=== PATIENT | female | born 1975 | race Caucasian/White ===

== ENCOUNTER 2016-08-29 15:31 | Emergency (ER) | payer OTHER ==
[~2016-08-29] VITALS: Ht 162.6 cm; Wt 115.2 kg
[~2016-08-29 15:31] MED LIST: ASCO-262 PO; CYAN10006 PO; HYDR-3812 PO; LEVO500T2 PO; MULT-974 PO; ONDA4TAB11 PO; ONDN4T PO
[2016-08-29] MEDS ORDERED: NS IV 1000 ML 1,000 ML IV ONE (15:34)
--- OUTSIDE RECORDS SUMMARY | 2016-08-29 15:36 | XMS REPORT | Continuity of Care Document ---
Author Author [facility] Organization [facility] Address Unknown Phone Unavailable Care Team Providers Care Parts Order And Stock Clerk Name Role Phone YUMIKO VOSS MD PCP Insurance Providers Payer Name Policy Number Subscriber Name Relationship [facility] [id number] Jan Anand W 01 Advance Directives Directive Response Recorded Date/Time Advance Directives No 09/14/15 10:00pm Organ Donor Yes 09/14/15 10:00pm Chief Complaint and Reason for Visit Chief Complaint Lower Extremity Reason for Visit Osteoarthritis of knee Problems Active Problems Medical Problem Onset Date Status Diarrhea Unknown Acute Diarrhea Unknown Acute Nausea and vomiting Unknown Acute Osteoarthritis of knee Unknown Acute Medications Current Home Medications Medication Dose Units Route Directions Days/Qty Instructions Start Date Multivitamin 1 Each 1 Tab Oral Daily 01/04/15 Ascorbate Calcium 500 Mg 500 Mg Oral Daily 09/15/15 Cyanocobalamin (Vitamin B-12) 1,000 Mcg 1,000 Mcg Oral Daily Past Home Medications Medication Directions Ordered Status Ondansetron 4 Mg Tab.rapdis, 4 Mg Oral Every 6 Hours as needed for Nausea/ Vomiting 01/05/15 Discontinued Hydrocodone/Acetaminophen 1 Each Tablet, 1 Tab Oral Every 4HRS as needed for Headache, Pain 09/17/15 Discontinued Social History Social History Problem Response Recorded Date/Time Alcohol Use Rarely Uses 09/14/2015 10:00pm Recreational Drug Use No 09/14/2015 10:00pm Recent Foreign Travel No 03/19/2016 6:08pm Recent Infectious Disease Exposure No 03/19/2016 6:08pm Sexually Transmitted Disease No 03/19/2016 6:11pm HIV/AIDS No 03/19/2016 6:11pm Recent Hopitalizations No 03/19/2016 6:11pm Sexually Transmitted Disease No 03/19/2016 6:11pm Hospital Discharge Instructions No hospital discharge instructions. Plan of Care Discharge Date 03/19/16 7:40pm Disposition 01 HOME, SELF-CARE Condition at Discharge Improved Instructions/Education Provided NO INSTRUCTIONS GIVEN Prescriptions See Medication Section Referrals YUMIKO VOSS MD - Primary Care Physician Additional Instructions/Education 1. Use anti-inflammatories like Naprosyn ( Aleve) or ibuprofen (Motrin) for pain relief 2. Use an ice pack to the knee at 20 minute intervals every 1-2 hours 3. If pain persists into next week follow-up with your primary care provider to discuss an MRI of the knee which we'll give a much more detailed view of the meniscus and ligamentous and can guide further treatments All discharge instructions reviewed with patient and/or family. Voiced understanding. Functional Status No functional status results. Allergies, Adverse Reactions, Alerts Allergen Type Severity Reaction Status Last Updated Penicillins ([id number]) Allergy Unknown Active 01/04/15 Morphine Allergy Severe SOA Active 03/19/16 metronidazole ([id number]) Allergy Unknown Active 01/04/15 Immunizations No immunization records. Vital Signs Acute Vital Signs Vital Response Date/Time Temperature (Fahrenheit) 97.3 degrees F (97.6 - 99.5) 03/19/2016 6:08pm Temperature (Calculated Celsius) 36.72329 degrees C (36.4 - 37.5) 03/19/2016 6:08pm Temperature Source Tympanic 03/19/2016 6:08pm Pulse Rate (adult) 71 bpm (60 - 90) 03/19/2016 6:08pm Respiratory Rate 18 bpm (12 - 24) 03/19/2016 6:08pm O2 Sat by Pulse Oximetry 98 % (88 - 100) 03/19/2016 6:08pm Blood Pressure 166/73 mm Hg 03/19/2016 6:08pm Blood Pressure Mean 104 mm Hg 03/19/2016 6:08pm Pain Numeric Pain Scale 6 03/19/2016 6:31pm Height (Feet) 5 feet 03/19/2016 6:08pm Height (Inches) 4 inches 03/19/2016 6:08pm Height (Calculated Centimeters) 162.111191 cm 03/19/2016 6:08pm Weight (Pounds) 250 pounds 03/19/2016 6:08pm Weight (Calculated Kilograms) 113.890891 kilograms 03/19/2016 6:08pm Capillary Refill Capillary Refill Less Than 3 Seconds 03/19/2016 6:08pm Height 5 ft 4 in Weight 250 lb Body Mass Index 42.9 kg/m^2 Results No known relevant diagnostic tests, laboratory data and/or discharge summary. Procedures No known history of procedures. Encounters Encounter Location Arrival/Admit Date Discharge/Depart Date Attending Provider Departed Emergency Room [facility] 03/19/16 5:55pm 03/19 7:40pm SKYLER SANTOS APRN Recent Diagnosis
[2016-08-29 15:52] LABS: BASOPHILS % (AUTO) 0 % (0-10); EOSINOPHILS # (AUTO) 0.2 10^3/uL (0.0-0.3); EOSINOPHILS % (AUTO) 2 % (0-10); LYMPHOCYTES # (AUTO) 2.7 X 10^3 (1.0-4.0); LYMPHOCYTES % (AUTO) 34 % (12-44); MEAN CORPUSCULAR HEMOGLOBIN 31 PG (25-34); MEAN CORPUSCULAR HGB CONC 36 G/DL (32-36); MEAN CORPUSCULAR VOLUME 86 FL (80-99); MEAN PLATELET VOLUME 10.1 FL (7.4-10.4); MONOCYTES # (AUTO) 0.7 X 10^3 (0.0-1.0); MONOCYTES % (AUTO) 9 % (0-12); NEUTROPHILS # (AUTO) 4.3 X 10^3 (1.8-7.8); NEUTROPHILS % (AUTO) 55 % (42-75); PLATELET COUNT 302 10^3/uL (130-400); RED BLOOD COUNT 4.24 10^6/uL (4.35-5.85); RED CELL DISTRIBUTION WIDTH 11.9 % (10.0-14.5); WHITE BLOOD COUNT 7.9 10^3/uL (4.3-11.0)
[2016-08-29 16:15] LABS: ALANINE AMINOTRANSFERASE 18 U/L (0-55); ALBUMIN 4.1 G/DL (3.2-4.5); ANION GAP 9 MMOL/L (5-14); ASPARTATE AMINO TRANSFERASE 17 U/L (5-34); BILIRUBIN,TOTAL 0.6 MG/DL (0.1-1.0); BLOOD UREA NITROGEN 8 MG/DL (7-18); BUN/CREATININE RATIO 12; CALCIUM 9.1 MG/DL (8.5-10.1); CARBON DIOXIDE 25 MMOL/L (21-32); CHLORIDE 102 MMOL/L (98-107); CREATININE SERUM 0.66 MG/DL (0.60-1.30); GFR ESTIMATED > 60; GLUCOSE 108 MG/DL (70-105); POTASSIUM 3.9 MMOL/L (3.6-5.0); SODIUM 136 MMOL/L (135-145); hs C REACTIVE PROTEIN 0.27 MG/DL (0.00-0.50)
[2016-08-29 16:25] LABS: ERYTHROCYTE SEDIMENTATION RATE 22 MM/HR (0-20)
--- NOTE | 2016-08-29 16:26 | ED Headache ---
General Chief Complaint: Head/Cervical Problems Stated Complaint: MIGRAINE,STIFF NECK,CHILLS Nursing Triage Note: PT REPORTS MIGRAINE X 2 DAYS AND NECK STIFFNESS STARTING TODAY. PT WAS SENT OVER FROM URGENT CARE FOR FURTHER EVALUATION. Nursing Sepsis Screen: No Definite Risk Source: patient, old records Exam Limitations: no limitations History of Present Illness Time seen by provider: 15:30 Initial Comments Patient was referred to the emergency room from Urgent Care with severe migraines since 17:00 yesterday. She rates the pain as 10. She denies any fever. She has had associated vomiting. She is still nauseated at present. She has light sensitivity. She has a history of viral meningitis last September and states this pain is similar. Although, she states present pain is not quite as severe as when she had meningitis. She took hydrocodone this morning. She has not taken any NSAIDs. Allergies and Home Medications Allergies Coded Allergies: Penicillins (Unverified Allergy, Unknown, 01/04/15) metronidazole (Unverified Allergy, Unknown, 01/04/15) morphine (Verified Adverse Reaction, Severe, SOA, 08/29/16) Chest tightness and palpitations Home Medications Ascorbate Calcium 500 Mg Tablet 500 MG PO DAILY (Reported) Cyanocobalamin (Vitamin B-12) 1,000 Mcg Tablet 1,000 MCG PO DAILY (Reported) Levofloxacin 500 Mg Tablet #10 500 MG PO DAILY Prescribed by: MIKEY MORILLO on 03/23/16415 Multivitamin 1 Each Tablet 1 TAB PO DAILY (Reported) Ondansetron 4 Mg Tab.rapdis #10 4 MG SL Q4H PRN PRN NAUSEA/VOMITING Prescribed by: JULIUS GONGORA on 08/29/16 590 Ondansetron HCl 4 Mg Tab #10 4 MG PO Q6H PRN PRN NAUSEA/VOMITING Prescribed by: MIKEY MORILLO on 03/23/16416 Constitutional: no symptoms reported Eyes: See HPI Ears, Nose, Mouth, Throat: no symptoms reported Respiratory: no symptoms reported Cardiovascular: no symptoms reported Gastrointestinal: see HPI Genitourinary: no symptoms reported : No Musculoskeletal: no symptoms reported Skin: no symptoms reported Psychiatric/Neurological: See HPI Past Rgbifqc-Byhlee-Wizjyp Hx Patient Social History Alcohol Use: Rarely Uses Recreational Drug Use: No Smoking Status: Former Smoker Former Smoker/When Quit: Sep 14, 2000 Recent Foreign Travel: No Contact w/Someone Who Travel: No Recent Infectious Disease Expo: No Recent Hopitalizations: No Physical Abuse Screen: No Sexual Abuse: No Immunizations Up To Date Tetanus Booster (TDap): Unknown Seasonal Allergies Seasonal Allergies: No Surgeries HX Surgeries: Yes Surgeries: Section, Tubal Ligation Respiratory Hx Respiratory Disorders: No Cardiovascular Hx Cardiac Disorders: No Neurological Hx Neurological Disorders: Yes (History of viral meningitis) Neurological Disorders: Headaches /Migraines Reproductive System Hx Reproductive Disorders: No Sexually Transmitted Disease: No HIV/AIDS: No DIRECTOR GIFT History: Tubal Ligation Genitourinary Hx Genitourinary Disorders: No Gastrointestinal Hx Gastrointestinal Disorders: No Musculoskeletal Hx Musculoskeletal Disorders: No Endocrine Hx Endocrine Disorders: No HEENT HX ENT Disorders: No Cancer Hx Cancer: No Psychosocial Hx Psychiatric Problems: No Integumentary HX Skin/Integumentary Disorder: No Blood Transfusions Hx Blood Disorders: No Adverse Reaction to a Blood Tr: No Family Medical History Significant Family History: No Pertinent Family Hx Physical Exam Vital Signs Vital Sign - Last 12Hours 08/29/16 15:53 Temp 98.0 Pulse 75 Resp 18 B/P 156/82 Pulse Ox 95 Capillary Refill : Less Than 3 Seconds General Appearance: WD/WN mild distress HEENT: PERRL/EOMI normal ENT inspection TMs normal Neck: non-tender full range of motion supple normal inspection other (No nuchal rigidity) Cardiovascular: regular rate, rhythm no edema no murmur Respiratory: lungs clear normal breath sounds no respiratory distress no accessory muscle use Gastrointestinal: normal bowel sounds non tender soft Extremities: normal inspection no pedal edema Psychiatric: alert oriented x 3 Crainal Nerves: normal hearing normal speech PERRL Coordination/Gait: normal gait Motor/Sensory: no motor deficit no sensory deficit Skin: normal color warm/dry Progress/Results/Core Measures Results/Orders Lab Results Laboratory Tests Test 08/29/16 15:44 Range/Units Alanine Aminotransferase (ALT/SGPT) 18 0-55 U/L Albumin 4.1 3.2-4.5 G/DL Alkaline Phosphatase 50 40-136 U/L Anion Gap 9 5-14 MMOL/L Aspartate Amino Transf (AST/SGOT) 17 5-34 U/L BUN/Creatinine Ratio 12 Basophils # (Auto) 0.0 0.0-0.1 10^3/uL Basophils (%) (Auto) 0 0-10 % Blood Urea Nitrogen 8 7-18 MG/DL C-Reactive Protein High Sensitivity 0.27 0.00-0.50 MG/DL Calcium Level 9.1 8.5-10.1 MG/DL Carbon Dioxide Level 25 21-32 MMOL/L Chloride Level 102 98-107 MMOL/L Creatinine 0.66 0.60-1.30 MG/DL Eosinophils # (Auto) 0.2 0.0-0.3 10^3/uL Eosinophils (%) (Auto) 2 0-10 % Erythrocyte Sedimentation Rate 22 H 0-20 MM/HR Estimat Glomerular Filtration Rate > 60 Glucose Level 108 H 70-105 MG/DL Hematocrit 36 35-52 % Hemoglobin 13.1 11.5-16.0 G/DL Lymphocytes # (Auto) 2.7 1.0-4.0 X 10^3 Lymphocytes (%) (Auto) 34 12-44 % Mean Corpuscular Hemoglobin 31 25-34 PG Mean Corpuscular Hemoglobin Concent 36 32-36 G/DL Mean Corpuscular Volume 86 80-99 FL Mean Platelet Volume 10.1 7.4-10.4 FL Monocytes # (Auto) 0.7 0.0-1.0 X 10^3 Monocytes (%) (Auto) 9 0-12 % Neutrophils # (Auto) 4.3 1.8-7.8 X 10^3 Neutrophils (%) (Auto) 55 42-75 % Platelet Count 302 130-400 10^3/uL Potassium Level 3.9 3.6-5.0 MMOL/L Red Blood Count 4.24 L 4.35-5.85 10^6/uL Red Cell Distribution Width 11.9 10.0-14.5 % Sodium Level 136 135-145 MMOL/L Total Bilirubin 0.6 0.1-1.0 MG/DL Total Protein 7.0 6.4-8.2 G/DL White Blood Count 7.9 4.3-11.0 10^3/uL Micro Results Microbiology 08/29/16 Influenza Types A,B Antigen (CEDRIC) - Final, Complete My Orders Orders-JULIUS BAKER MD Cbc With Automated Diff (08/29/16 15:34) Comprehensive Metabolic Panel (08/29/16 15:34) Hs C Reactive Protein (08/29/16 15:34) Erythrocyte Sedimentation Rate (08/29/16 15:34) Influenza A And B Antigens (08/29/16 15:34) Saline Lock/Iv-Start (08/29/16 15:34) Ns Iv 1000 Ml (Sodium Chloride 0.9%) (08/29/16 15:34) Ondansetron Injection (Zofran Injectio (08/29/16 16:30) Fentanyl Injection (Sublimaze Injection (08/29/16 16:30) Ct Head Wo (08/29/16 16:26) Ketorolac Injection (Toradol Injection) (08/29/16 17:30) Methylprednisolone Sod Succ (Solu-Medrol (08/29/16 18:00) Medications Given in ED Vital Signs/I&O Vital Sign - Last 12Hours 08/29/16 08/29/16 15:53 18:06 Temp 98.0 98.0 Pulse 75 71 Resp 18 18 B/P 156/82 Pulse Ox 95 95 Blood Pressure Mean: 106 Progress Note #1: Time: 16:24 Progress Note Patient is receiving IV fluids. Labs have been resulted and are not consistent with infectious etiology. Patient is also afebrile. She will receive fentanyl and a CT scan will be repeated. CT was felt appropriate due to the sudden and severe onset of this headache. Options were discussed and patient is agreeable to CT scan. Toradol will be used for further pain management if CT is normal. Progress Note #2: Time: 17:[address] head report reviewed. No acute abnormalities. Toradol was ordered. Progress Note #3: Progress Note Patient had significant improvement in symptoms prior to dismissal. Diagnostic Imaging Diagonstic Imaging: CT Plain Films/CT/US/NM/MRI: head Comments CT head viewed by me and report reviewed. See report below: NAME: BENJI PEREZ [facility] REC#: [id number] PT STATUS: REG ER : 1975 PHYSICIAN: JULIUS BAKER MD ADMIT DATE: 08/29/16/ER Signed Date of Exam:08/29/16 CT HEAD WO PROCEDURE: CT head without contrast. TECHNIQUE: Multiple contiguous axial images were obtained through the brain without the use of intravenous contrast. INDICATION: Headache. Neck stiffness.. FINDINGS: There is no intracranial hemorrhage, edema or mass effect. The brain parenchyma appears unremarkable. No hydrocephalus. The visualized portions of the orbits and paranasal sinuses appear unremarkable. IMPRESSION: Unremarkable study. Dictated by: Dictated on workstation # [id number] Dict: 08/29/16 1646 Trans: 08/29/16 1648 [facility] [id number] Interpreted by: WILLIE MARY MD Electronically signed by: WILLIE MARY MD 08/29/16 1650 Departure Impression Impression: Primary Impression: Acute headache Qualified Code: R51 - Headache Additional Impression: Nausea and vomiting Qualified Code: R11.2 - Nausea with vomiting, unspecified Disposition: HOME, SELF-CARE Condition: Improved Departure-Patient Inst. Decision time for Depature: 17:56 Referrals: YUMIKO VOSS MD (PCP/Family) Primary Care Physician Patient Instructions: Headache, Adult (DC) Add. Discharge Instructions: You may take ibuprofen up to 800 mg every 8 hours as needed for pain. Add Tylenol up to 1000 g every 6 hours as needed for additional pain relief. Uses Zofran (ondansetron) as prescribed for nausea. Stay well-hydrated and rest in a quiet, calm, dark environment for the rest of the evening. Return to care if symptoms worsen. All discharge instructions reviewed with patient and/or family. Voiced understanding. Scripts Ondansetron (Zofran Odt)4 Mg Tab.rapdis4 Mg SL Q4H PRN NAUSEA/VOMITING #10 TAB Prov:JULIUS BAKER MD 08/29/16 Work/School Note: Work Release Form Date Seen in the Emergency Department: Aug 29, 2016 Return to Work: Aug 30, 2016 Restrictions: No Restrictions JULIUS BAKER MD Aug 29, 2016 16:26
[2016-08-29] MEDS ORDERED: fentaNYL INJECTION 100 MCG/2 ML AMP IVP ONE (16:30)
[2016-08-29] MEDS ORDERED: ONDANSETRON 4 MG/2 ML (SDV) Z0FRAN IVP ONE (16:30)
--- NOTE | 2016-08-29 16:50 | Diagnostic Imaging Report ---
PROCEDURE: CT head without contrast. TECHNIQUE: Multiple contiguous axial images were obtained through the brain without the use of intravenous contrast. INDICATION: Headache. Neck stiffness.. FINDINGS: There is no intracranial hemorrhage, edema or mass effect. The brain parenchyma appears unremarkable. No hydrocephalus. The visualized portions of the orbits and paranasal sinuses appear unremarkable. IMPRESSION: Unremarkable study. Dictated by: Dictated on workstation # [id number]
[2016-08-29] MEDS ORDERED: KETOROLAC 30 MG/ML VIAL IVP ONE (17:30)
[2016-08-29] MEDS ORDERED: ONDA4TAB8 SL (17:57)
[2016-08-29] MEDS ORDERED: methylPREDNISolone 125 MG (Solu-MEDROL) VIAL IVP ONE (18:00)
[2016-08-29 18:06] VITALS: BP 149/71
== END 2016-08-29 18:06 | disposition home or self-care (01) ==
LOC: EDUNIT# 15:31 → ER 15:32
DX: R51 Headache (principal); R11.2 Nausea with vomiting, unspecified
CPT/HCPCS: 36415; 70450; 80053; 85025; 85652; 86141; 87804; 96361; 96374; 96375

== ENCOUNTER → 2017-06-07 | Outpatient (CLI) | payer OTHER ==
[~2017-06-07] MED LIST changes: +ONDA4TAB8 SL
--- NOTE | 2017-06-07 14:47 | Diagnostic Imaging Report ---
PROCEDURE: MRI right joint lower extremity without contrast. TECHNIQUE: Multiplanar, multisequence non contrast-enhanced MRI of the right lower extremity was accomplished. INDICATION: Right knee pain after twisting injury on 05/17/2017. COMPARISON: Comparison study from 07/01/2016 is reviewed. FINDINGS: There is a [id number] suprapatellar effusion. There is no Vazquez's cyst. There is a 1.4 x 1.1 x 1.7 cm ganglion cyst abutting the posterior margin of the femur in the supracondylar region. This appears similar to the previous study. There is a complex tear involving the posterior horn and posterior root of the medial meniscus. The medial meniscus is also extruded at the body of the meniscus level buckling the MCL. The lateral meniscus appears intact. The ACL and the PCL appear intact. The extensor mechanism appear normal. The lateral collateral ligamentous complex appear intact. No MCL tear is seen. There is mild thinning of the cartilage in the medial compartment with prominent marginal osteophytes and mild subchondral sclerosis is seen. IMPRESSION: 1. Complex tear involving the posterior root of the medial meniscus similar to the previous exam. The medial meniscus is also extruded at the body of the meniscus. 2. Mild thinning of the cartilage in the medial compartment with posterior osteophytes compatible with degenerative changes. 3. Ganglion cyst abutting the posterior margin of the supracondylar region of the femur. 4. [id number] joint effusion. Dictated by: Dictated on workstation # [id number]
== END ==
LOC: RAD 13:05
PROVIDERS: ATTEND Family Medicine
DX: S83.241A Other tear of medial meniscus, current injury, right knee, initial encounter (principal); M25.461 Effusion, right knee; M67.461 Ganglion, right knee; X58.XXXA Exposure to other specified factors, initial encounter; Y99.8 Other external cause status
CPT/HCPCS: 73721